=== PATIENT | male | born 1995 | race Hispanic/Latino ===

== ENCOUNTER 2020-02-23 11:14 | Emergency (ER) | payer OTHER ==
[~2020-02-23] VITALS: Ht 182.9 cm; Wt 95.5 kg
[2020-02-23] MEDS ORDERED: NS 1,000 ML IV ONE (11:30)
[2020-02-23] MEDS ORDERED: METOCLOPRAMIDE INJ 10MG/2ML VIAL (J2765 PER 1) IV ONE (11:30)
[2020-02-23] MEDS ORDERED: LORazepam 2 MG TAB PO STA (12:06)
[2020-02-23 12:08] LABS: HEMATOCRIT 50.6 % (42.0-52.0); HEMOGLOBIN 16.5 g/dl (13.5-17.5); MEAN CORPUSCULAR HEMOGLOBIN 29.8 pg (27.0-33.0); MEAN CORPUSCULAR HGB CONC 32.6 g/dl (32.0-36.5); MEAN CORPUSCULAR VOLUME 91.3 fl (80.0-96.0); PLATELET COUNT, AUTOMATED 251 10^3/uL (150-450); RED BLOOD COUNT 5.54 10^6/uL (4.30-6.10); WHITE BLOOD COUNT 6.5 10^3/uL (4.0-10.0)
[2020-02-23 12:36] LABS: ACETAMINOPHEN LEVEL < 2.0 UG/ML (10.0-30.0); ALBUMIN 4.6 GM/DL (3.2-5.2); ALT/SGPT 28 U/L (12-78); BILIRUBIN,DIRECT 0.1 MG/DL (0.0-0.2); BILIRUBIN,TOTAL 0.6 MG/DL (0.2-1.0); BLOOD UREA NITROGEN 11 MG/DL (7-18); CALCIUM LEVEL 8.8 MG/DL (8.5-10.1); CARBON DIOXIDE LEVEL 29 MEQ/L (21-32); CHLORIDE LEVEL 104 MEQ/L (98-107); CREATININE FOR GFR 1.04 MG/DL (0.70-1.30); ETHYL ALCOHOL (ETHANOL) 0.003 % (0.000-0.010); GLOMERULAR FILTRATION RATE > 60.0 (>60); GLUCOSE, FASTING 91 MG/DL (70-100); POTASSIUM SERUM 3.9 MEQ/L (3.5-5.1); SALICYLATE LEVEL < 1.7 MG/DL (5.0-30.0); SODIUM LEVEL 140 MEQ/L (136-145); THYROID STIMULATING HORMONE 0.864 uIU/ML (0.358-3.740); TOTAL PROTEIN 8.5 GM/DL (6.4-8.2)
[2020-02-23 12:51] LABS: AMPHETAMINES LEVEL URINE NEGATIVE (NEGATIVE); BARBITURATES URINE NEGATIVE (NEGATIVE); BENZODIAZEPINES URINE NEGATIVE (NEGATIVE); CANNABINOIDS URINE NEGATIVE (NEGATIVE); COCAINE METABOLITE URINE NEGATIVE (NEGATIVE); METHADONE URINE NEGATIVE (NEGATIVE); OPIATES URINE NEGATIVE (NEGATIVE); PHENCYCLIDINE URINE NEGATIVE (NEGATIVE)
[2020-02-23] MEDS ORDERED: LORazepam 2 MG TAB PO PRN (19:15)
[2020-02-23] MEDS: THIAMINE 100 MG TAB PO SCH (20:01)
[2020-02-24] MEDS ORDERED: FOLIC ACID 1 MG TAB PO SCH (09:00)
[2020-02-24] MEDS ORDERED: MULTIVITAMINS/MINERALS THERAP 1 TAB PO SCH (09:00)
[2020-02-24] MEDS: THIAMINE 100 MG TAB PO SCH (09:14)
[2020-02-24 09:39] VITALS: BP 122/77
--- NOTE | 2020-02-25 07:54 | ECGEPIP ---
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
== END 2020-02-24 09:50 ==
LOC: M ED 11:14
DX: T14.91XA Suicide attempt, initial encounter (principal); Y92.9 Unspecified place or not applicable; Y93.9 Activity, unspecified; F32.9 Major depressive disorder, single episode, unspecified; Z79.899 Other long term (current) drug therapy
CPT/HCPCS: 36415; 80048; 80076; 80307; 83690; 84443; 85027; 87486; 87507; 87581; 87633; 87798; 93005; 96361; 96374; 99285; G0480; J2765

== ENCOUNTER 2020-02-29 07:01 | Emergency (ER) | payer OTHER ==
[~2020-02-29] VITALS: Ht 182.9 cm; Wt 96.4 kg
[2020-02-29 07:47] LABS: BASO % 0.4 % (0.0-1.0); EOS # 0.2 10^3/uL (0.0-0.5); EOS % 2.6 % (0.0-3.0); HEMATOCRIT 44.3 % (42.0-52.0); HEMOGLOBIN 14.6 g/dl (13.5-17.5); LYMPH % 28.4 % (24.0-44.0); MEAN CORPUSCULAR HEMOGLOBIN 29.6 pg (27.0-33.0); MEAN CORPUSCULAR VOLUME 89.9 fl (80.0-96.0); MONO # 0.7 10^3/uL (0.0-0.8); MONO % 10.4 % (0.0-5.0); NEUTROPHILS % 57.8 % (36.0-66.0); PLATELET COUNT, AUTOMATED 210 10^3/uL (150-450); RED BLOOD COUNT 4.93 10^6/uL (4.30-6.10)
--- NOTE | 2020-02-29 07:51 | REP ---
INDICATION: CHEST PAIN. COMPARISON: None. TECHNIQUE: Upright AP portable radiograph. FINDINGS: Monitoring electrodes are seen. The lungs are well inflated and clear. Heart is not enlarged. Pulmonary vasculature is not increased. There is minimal levoconvex curvature in the upper thoracic spine. No significant bony abnormality. IMPRESSION: Negative portable chest x-ray. <Electronically signed by Tank Rodriguez > 02/29/20 0722
[2020-02-29] MEDS ORDERED: ISOVUE-370 76% 100ML VIAL As Ordered ONE (08:16)
[2020-02-29 08:21] LABS: ALBUMIN 4.2 GM/DL (3.2-5.2); BILIRUBIN,DIRECT 0.3 MG/DL (0.0-0.2); BILIRUBIN,TOTAL 0.9 MG/DL (0.2-1.0); FREE T4 1.13 NG/DL (0.76-1.46); THYROID STIMULATING HORMONE 0.724 uIU/ML (0.358-3.740); TOTAL PROTEIN 7.5 GM/DL (6.4-8.2)
[2020-02-29] MEDS ORDERED: KETOROLAC 30 MG/ML 1ML VIAL IV ONE (08:30)
[2020-02-29] MEDS ORDERED: NS 1,000 ML IV ONE (08:30)
[2020-02-29] MEDS ORDERED: CITA10TA5 PO (09:05)
[2020-02-29] MEDS ORDERED: TH DTAB2 PO (09:05)
[2020-02-29] MEDS ORDERED: FOLI1TAB11 PO (09:05)
[2020-02-29] MEDS ORDERED: THIA100TA PO (09:05)
--- NOTE | 2020-02-29 09:09 | REP ---
INDICATION: chest pain POC 12/0.9. COMPARISON: None. TECHNIQUE: CT angiogram chest performed following the intravenous administration of 100 cc of Isovue 370. Sagittal and coronal reconstruction images are performed. FINDINGS: Lungs: Clear, no infiltrate or nodule. Mediastinum: No adenopathy. Pulmonary arteries: No evidence of pulmonary embolism. Janna: No adenopathy. Axilla: No adenopathy. Pleura: No effusion. Heart: Not enlarged. Thoracic aorta: No aneurysm or dissection. Upper abdominal structures: Unremarkable. Visualized osseous structures: Unremarkable. IMPRESSION: No CT evidence of pulmonary embolism.No infiltrate seen. No thoracic aortic aneurysm or dissection. <Electronically signed by Victor Manuel Galloway > 02/29/20 0906
[2020-02-29 10:43] VITALS: BP 127/71
--- NOTE | 2020-02-29 19:37 | ECGEPIP ---
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
--- NOTE | 2020-02-29 19:39 | ECGEPIP ---
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
== END 2020-02-29 10:45 | disposition home or self-care (01) ==
LOC: M ED 07:01
DX: R07.9 Chest pain, unspecified (principal); R00.2 Palpitations; T43.205A Adverse effect of unspecified antidepressants, initial encounter; R00.1 Bradycardia, unspecified; I45.19 Other right bundle-branch block; F17.200 Nicotine dependence, unspecified, uncomplicated
CPT/HCPCS: 71045; 71275; 80047; 80076; 83690; 84439; 84443; 84484; 85025; 93005; 93041; 94760; 96360; 96361; 99285; Q9967